=== PATIENT | male | born 1965 | race Caucasian/White ===

== ENCOUNTER 2022-09-01 14:48 | Emergency (ER) | payer OTHER ==
[~2022-09-01] VITALS: Ht 182.9 cm; Wt 88.5 kg
[2022-09-01 15:20] VITALS: BP 135/84
[2022-09-01] MEDS ORDERED: DICYCLOMINE HCL LIQUID 20 MG, ALUMINUM HYD/MAG/SIMETHICONE 30 ML, LIDOCAINE VISCOUS 2% ... PO ONE ×3 (15:55)
[2022-09-01] MEDS ORDERED: ALUMINUM HYD/MAG/SIMETHICONE 30 ML UDC PO ONE (17:55)
[2022-09-01] MEDS ORDERED: ALUM355S59 PO (17:56)
--- NOTE | 2022-09-01 18:27 | NUR ---
Patient discharged with v/s stable. Written and verbal after care instructions given and explained. Patient alert, oriented and verbalized understanding of instructions. Ambulatory with steady gait. All questions addressed prior to discharge. ID band removed. Patient advised to follow up with PMD. Rx of MAALOX given. Patient educated on indication of medication including possible reaction and side effects. Opportunity to ask questions provided and answered.
== END 2022-09-01 18:26 | disposition home or self-care (01) ==
LOC: MED 14:48
DX: K29.70 Gastritis, unspecified, without bleeding (principal); R12 Heartburn; K31.1 Adult hypertrophic pyloric stenosis; Z79.899 Other long term (current) drug therapy
CPT/HCPCS: 99282

== ENCOUNTER 2022-09-25 08:19 | Day surgery (SDC) | payer OTHER ==
[~2022-09-25] VITALS: Ht 185.4 cm; Wt 86.2 kg
[~2022-09-25 08:19] MED LIST: ALUM355S59 PO
[2022-09-25] MEDS ORDERED: fentaNYL citrate 0.05 MG/ML VIAL ONE (09:46)
[2022-09-25] MEDS ORDERED: MIDAZOLAM 2 MG/2 ML VIAL ONE ×2 (09:47)
[2022-09-25] MEDS ORDERED: LIDOCAINE 2% 100 MG/5 ML UJET TP ONE (09:47)
[2022-09-25] MEDS ORDERED: fentaNYL citrate 0.05 MG/ML VIAL IVP ONE (10:45)
[2022-09-25] MEDS ORDERED: MIDAZOLAM 2 MG/2 ML VIAL IVP ONE (10:45)
== END 2022-09-25 11:30 | disposition home or self-care (01) ==
LOC: MOR 08:19 → MMU 09:01 → MOR 11:30
PROVIDERS: ATTEND Internal Medicine Gastroenterology
DX: R19.7 Diarrhea, unspecified (principal); K29.70 Gastritis, unspecified, without bleeding; K21.9 Gastro-esophageal reflux disease without esophagitis; I10 Essential (primary) hypertension; E78.5 Hyperlipidemia, unspecified; F32.A Depression, unspecified; F41.9 Anxiety disorder, unspecified; Z79.899 Other long term (current) drug therapy
CPT/HCPCS: 36415; 43239; 45330; 86677; J2250; J3010; 45350